=== PATIENT | female | born 1955 | race Caucasian/White ===

== ENCOUNTER 2017-07-12 10:37 | Emergency (ER) | payer BC, OTHER ==
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
[2017-07-12] MEDS ORDERED: busPIRone 10 MG Tab ONE ×2 (12:32→12:45)
[2017-07-12 18:28] VITALS: BP 149/91
== END 2017-07-12 12:55 | disposition home or self-care (01) ==
LOC: LB.ED 10:37
DX: F41.8 Other specified anxiety disorders (principal); F10.20 Alcohol dependence, uncomplicated
CPT/HCPCS: 36415; 80053; 84443; 85025; 99284; A9270

== ENCOUNTER 2017-07-19 14:34 | Emergency (ER) | payer OTHER ==
[2017-07-19 14:52] VITALS: BP 140/94
--- NOTE | 2017-07-19 15:33 | EDM.PDOCBH ---
ED HPI GENERAL MEDICAL PROBLEM - General Chief Complaint: Behavioral/Psych Stated Complaint: "drinking problem" Time Seen by Provider: 07/19/17 15:20 Source of Information: Reports: Patient History Limitations: Reports: No Limitations, Other (states alcoholic and wants treatment) - History of Present Illness INITIAL COMMENTS - FREE TEXT/NARRATIVE: 62 yr female presents for help with alcoholism. States she has fleeting thoughts of ways to hurt self and to commit suicide. States she doesn't want to go home, because she will just keep drinking. States she wants to go somewhere to get help with her drinking. States she has Busipar and quit taking it. States it didn't work for her. She was prescribed this at the begining of July. 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 She states she has fine tremors and has tried a couple different medications for this and it hasn't helped. Onset: Gradual Associated Symptoms: Reports: Loss of Appetite, Weakness - Related Data Allergies Allergy/AdvReac Type Severity Reaction Status Date / Time blueberry Allergy Anaphylactic Verified 07/19/17 14:53 Shock mold Allergy Anaphylactic Verified 07/19/17 14:53 Shock Home Meds: Home Meds NK [No Known Home Meds] 07/19/17 [History] ED ROS GENERAL - Review of Systems Review Of Systems: See Below Constitutional: Reports: Weakness, Decreased Appetite. Denies: Fever, Chills HEENT: Reports: No Symptoms Respiratory: Reports: No Symptoms Cardiovascular: Reports: No Symptoms Endocrine: Reports: No Symptoms GI/Abdominal: Reports: Decreased Appetite, Nausea. Denies: Constipation, Diarrhea, Hematochezia, Melena : Reports: No Symptoms Musculoskeletal: Reports: No Symptoms Skin: Reports: No Symptoms Neurological: Reports: No Symptoms Psychiatric: Reports: Anxiety, Suicidal Ideation. Denies: Confusion, Homicidal Ideation ED EXAM, BEHAVIORAL HEALTH - Physical Exam Exam: See Below Exam Limited By: No Limitations General Appearance: Alert, WD/WN, No Apparent Distress Ears: Normal External Exam Nose: Normal Inspection Head: Atraumatic Neck: Supple, Non-Tender Respiratory/Chest: No Respiratory Distress, Lungs Clear Cardiovascular: Regular Rate, Rhythm, No Edema GI/Abdominal: Normal Bowel Sounds, Soft, Non-Tender, No Distention. No: Distended, Tender Extremities: Normal Range of Motion. No: No Pedal Edema Neurological: Alert, Oriented x 3 Psychiatric: Alert, Normal Cognition, Suicidal Thoughts. No: Restless, Agitated Skin Exam: Warm, Dry, Normal color COURSE, BEHAVIORAL HEALTH COMP - Course Vital Signs: Last Vital Signs Temp 97.3 F 07/19/17 14:45 Pulse 87 07/19/17 14:45 Resp 16 07/19/17 14:45 BP 140/94 H 07/19/17 14:45 Pulse Ox 97 07/19/17 14:45 Orders, Labs, Meds: Laboratory Tests 07/19/17 07/19/17 07/19/17 Range/Units 15:40 15:40 15:40 WBC 4.4 (4.0-11.0) K/uL RBC 4.14 (3.80-5.80) M/uL Hgb 13.9 (11.5-16.5) g/dL Hct 41.4 (37.0-47.0) % MCV 100 H (76-96) fL MCH 33.6 H (27.0-32.0) pg MCHC 33.6 (31.0-35.0) g/dL RDW 12.4 (11.0-16.0) % Plt Count 194 D (150-500) K/uL MPV 8.5 (6.0-10.0) fL Neut % (Auto) 55.6 (45.0-70.0) % Lymph % (Auto) 34.2 (20.0-40.0) % Park % (Auto) 9.0 (3.0-10.0) % Eos % (Auto) 0.7 L (1.0-5.0) % Baso % (Auto) 0.5 (0.0-0.5) % Neut # (Auto) 2.46 (2.00-7.50) K/uL Lymph # (Auto) 1.51 (1.50-4.00) K/uL Park # (Auto) 0.40 (0.20-0.80) K/uL Eos # (Auto) 0.03 L (0.04-0.40) K/uL Baso # (Auto) 0.02 (0.02-0.10) K/uL Sodium 142 (136-145) mmol/L Potassium 3.5 (3.5-5.1) mmol/L Chloride 100 (98-107) mmol/L Carbon Dioxide 29.6 (21.0-32.0) mmol/L Anion Gap 15.9 H (5.0-15.0) mmol/L BUN 3 L D (8-26) mg/dL Creatinine 0.50 L (0.55-1.02) mg/dL Est Cr Clr Drug Dosing 91.16 mL/min Estimated GFR (MDRD) > 60 (>60) MLS/MIN BUN/Creatinine Ratio 6.0 (6-25) Glucose 78 (74-100) mg/dL Lactic Acid (0.90-1.70) mmol/L Calcium 9.0 (8.5-10.1) mg/dL Total Bilirubin 0.6 (0.0-1.0) mg/dL AST 119 H (15-37) U/L ALT 110 H (12-78) U/L Alkaline Phosphatase 102 (46-116) U/L Total Protein 8.1 (6.4-8.2) g/dL Albumin 4.3 (3.4-5.0) g/dL Globulin 3.8 (2.2-4.2) g/dL Albumin/Globulin Ratio 1.1 (0.8-2.0) TSH, Ultra Sensitive 0.733 D (0.358-3.740) uIU/mL Urine Color Urine Appearance (CLEAR) Urine pH (5.0-8.0) Ur Specific [place] (1.003-1.030) Urine Protein (NEGATIVE) mg/dL Urine Glucose (UA) (NEGATIVE) mg/dL Urine Ketones (NEGATIVE) mg/dL Urine Occult Blood (NEGATIVE) Urine Nitrite (NEGATIVE) Urine Bilirubin (NEGATIVE) Urine Urobilinogen (0.2-1.0) E.U./dL Ur Leukocyte Esterase (NEGATIVE) Urine RBC /HPF Urine WBC /HPF Ur Squamous Epith Cells /HPF Urine Opiates Screen (NEGATIVE) Ur Oxycodone Screen (NEGATIVE) Urine Methadone Screen U Acetaminophen Screen Ur Barbiturates Screen (NEGATIVE) Ur Tricyclics Screen (NEGATIVE) Ur Phencyclidine Scrn (NEGATIVE) Ur Amphetamine Screen (NEGATIVE) U Methamphetamines Scrn (NEGATIVE) U Benzodiazepines Scrn (NEGATIVE) U Cocaine Metab Screen (NEGATIVE) U Marijuana (THC) Screen (NEGATIVE) Ethyl Alcohol 173.0 H (0.0-0.0) mg/dL 07/19/17 07/19/17 07/19/17 Range/Units 15:40 15:45 Unknown WBC (4.0-11.0) K/uL RBC (3.80-5.80) M/uL Hgb (11.5-16.5) g/dL Hct (37.0-47.0) % MCV (76-96) fL MCH (27.0-32.0) pg MCHC (31.0-35.0) g/dL RDW (11.0-16.0) % Plt Count (150-500) K/uL MPV (6.0-10.0) fL Neut % (Auto) (45.0-70.0) % Lymph % (Auto) (20.0-40.0) % Park % (Auto) (3.0-10.0) % Eos % (Auto) (1.0-5.0) % Baso % (Auto) (0.0-0.5) % Neut # (Auto) (2.00-7.50) K/uL Lymph # (Auto) (1.50-4.00) K/uL [place] # (Auto) (0.20-0.80) K/uL Eos # (Auto) (0.04-0.40) K/uL Baso # (Auto) (0.02-0.10) K/uL Sodium (136-145) mmol/L Potassium (3.5-5.1) mmol/L Chloride (98-107) mmol/L Carbon Dioxide (21.0-32.0) mmol/L Anion Gap (5.0-15.0) mmol/L BUN (8-26) mg/dL Creatinine (0.55-1.02) mg/dL Est Cr Clr Drug Dosing mL/min Estimated GFR (MDRD) (>60) MLS/MIN BUN/Creatinine Ratio (6-25) Glucose (74-100) mg/dL Lactic Acid 3.35 H (0.90-1.70) mmol/L Calcium (8.5-10.1) mg/dL Total Bilirubin (0.0-1.0) mg/dL AST (15-37) U/L ALT (12-78) U/L Alkaline Phosphatase (46-116) U/L Total Protein (6.4-8.2) g/dL Albumin (3.4-5.0) g/dL Globulin (2.2-4.2) g/dL Albumin/Globulin Ratio (0.8-2.0) TSH, Ultra Sensitive (0.358-3.740) uIU/mL Urine Color Yellow Urine Appearance Clear (CLEAR) Urine pH 5.5 (5.0-8.0) Ur Specific [place] 1.010 (1.003-1.030) Urine Protein Negative (NEGATIVE) mg/dL Urine Glucose (UA) Negative (NEGATIVE) mg/dL Urine Ketones Trace H (NEGATIVE) mg/dL Urine Occult Blood Trace-intact H (NEGATIVE) Urine Nitrite Negative (NEGATIVE) Urine Bilirubin Negative (NEGATIVE) Urine Urobilinogen 0.2 (0.2-1.0) E.U./dL Ur Leukocyte Esterase Negative (NEGATIVE) Urine RBC 0-5 H /HPF Urine WBC 0-5 H /HPF Ur Squamous Epith Cells Few /HPF Urine Opiates Screen Negative (NEGATIVE) Ur Oxycodone Screen Negative (NEGATIVE) Urine Methadone Screen Not Reportable U Acetaminophen Screen Not Reportable Ur Barbiturates Screen Negative (NEGATIVE) Ur Tricyclics Screen Negative (NEGATIVE) Ur Phencyclidine Scrn Negative (NEGATIVE) Ur Amphetamine Screen Negative (NEGATIVE) U Methamphetamines Scrn Negative (NEGATIVE) U Benzodiazepines Scrn Negative (NEGATIVE) U Cocaine Metab Screen Negative (NEGATIVE) U Marijuana (THC) Screen Negative (NEGATIVE) Ethyl Alcohol (0.0-0.0) mg/dL Re-Assessment/Re-Exam: Pt states comfortable and not hungry. Reviewed lab results with pt. No UTI noted, no leukocytosis, no electrolyte imbalance, and Hemoglobin normal. Drug screen completed and negative. Elevated ETOH level. Helen RN made phone calls and [facility] has opening for detox for pt. Will transport by road Ambulance as pt has been suicidal and stated her plan would be to open the door and just fall out of vehicle. Pt states she wants treatment and doesn't want to return home until this is complete. She is voluntary in her treatment. Departure - Departure Time of Disposition: 17:50 (Pt to be transferred to [facility] detox center via ground ambulance, as pt is suicidal and states she has thought about throwing self out of running vehicle.) Disposition: DC/Tfer to Other 70 Condition: Good Clinical Impression: Alcohol abuse, Anxiety and depression, EtOH dependence - Discharge Information Referrals: PCP,None [Primary Care Provider] - Forms: ED Department Discharge
== END 2017-07-19 18:05 | disposition other institution (70) ==
LOC: LB.ED 14:34
DX: F10.20 Alcohol dependence, uncomplicated (principal); F41.9 Anxiety disorder, unspecified; F32.9 Major depressive disorder, single episode, unspecified; Z91.018 Allergy to other foods
CPT/HCPCS: 36415; 80053; 80307; 81001; 83605; 84443; 85025; 99285; G0480; A0425; A0429